=== PATIENT | female | born 1980 ===

== ENCOUNTER 2023-01-09 05:12 | Day surgery (SDC) | payer OTHER ==
[~2023-01-09 05:12] MED LIST: HUM
== END 2023-01-09 10:35 | disposition home or self-care (01) ==
LOC: CIR.AMB 05:12
PROVIDERS: ATTEND Specialist
DX: K43.6 Other and unspecified ventral hernia with obstruction, without gangrene (principal); Z20.822 Contact with and (suspected) exposure to COVID-19; E10.9 Type 1 diabetes mellitus without complications